=== PATIENT | female | born 1975 | race Caucasian/White ===

== ENCOUNTER 2018-08-12 01:30 | Emergency (ER) | payer SELFPAY ==
[~2018-08-12] VITALS: Ht 152.4 cm; Wt 70.3 kg
== END 2018-08-12 02:36 | disposition home or self-care (01) ==
LOC: ER 01:30
DX: R11.2 Nausea with vomiting, unspecified (principal); M32.9 Systemic lupus erythematosus, unspecified; F31.9 Bipolar disorder, unspecified; F41.9 Anxiety disorder, unspecified
CPT/HCPCS: 99282